=== PATIENT | male | born 1970 | race African-American/Black ===

== ENCOUNTER 2019-07-15 08:20 | Observation (INO) | payer OTHER ==
--- NOTE | 2019-07-15 09:15 | EKG REPORT ---
SEVERITY:- OTHERWISE NORMAL ECG - SINUS RHYTHM BORDERLINE LEFT AXIS DEVIATION : Confirmed by: Jaleel Lange 15-Jul-2019 09:15:10
--- NOTE | 2019-07-15 09:39 | ER Document Report ---
ED General - General Chief Complaint: Chest Pain Stated Complaint: CHEST PAIN Time Seen by Provider: 07/15/19 09:37 Mode of Arrival: Ambulatory Information source: Patient Notes: 48-year-old male with history of high cholesterol not taking meds presents to the emergency department with complaints of mid chest pain that started this morning when he was getting dressed for work. Reports it feels like a strain in the middle of his chest. Also reports he had some left-sided chest pain that s tarted a couple of weeks ago that comes and goes. He reports the left side of the chest feels like a pulled muscle. He reports it hurts when he takes a deep breath or moves. He also feels short of breath. Denies fever nausea vomiting diarrhea. Denies trauma. Reports he was lifting weights before but nothing recently. He reports he has been eating drinking voiding bowel movement as normal. Last bowel movement was yesterday. Denies history of cardiac disease. TRAVEL OUTSIDE OF THE [place] IN LAST 30 DAYS: No - HPI Onset: This morning Onset/Duration: Sudden Quality of pain: Other - Strain Associated symptoms: Shortness of breath Exacerbated by: Deep breathing Relieved by: Denies Similar symptoms previously: No Recently seen / treated by doctor: No - Related Data Allergies/Adverse Reactions: No Known Allergies Allergy (Verified 07/15/19 08:41) Past Medical History - General Information source: Patient - Social History Smoking Status: Unknown if Ever Smoked Chew tobacco use (# tins/day): No Frequency of alcohol use: None Drug Abuse: None Occupation: [employer] Lives with: Family Family History: CAD - mother Patient has suicidal ideation: No Patient has homicidal ideation: No - Past Medical History Cardiac Medical History: Reports: Hx Hypercholesterolemia Musculoskeletal Medical History: Reports Hx Arthritis Surgical Hx: Negative Review of Systems - Review of Systems Notes: Review HPI for review of systems., All other systems negative Physical Exam - Vital signs Vitals: Temp Pulse Resp BP Pulse Ox 97.9 F 69 20 128/80 H 97 07/15/19 08:31 07/15/19 08:31 07/15/19 08:31 07/15/19 08:31 07/15/19 08:31 - General General appearance: Appears well, Alert In distress: None - HEENT Head: Normocephalic, Atraumatic Eyes: Normal Conjunctiva: Normal Extraocular movements intact: Yes Eyelashes: Normal Pupils: PERRL Ears: Normal External canal: Normal Tympanic membrane: Normal Mucous membranes: Normal, Moist Pharynx: Normal. No: Erythema Neck: Normal, Supple. No: Lymphadenopathy - Respiratory Respiratory status: No respiratory distress Chest status: Tender - Chest wall tender to palpate, Pain with deep breathing Breath sounds: Normal Chest palpation: Normal - Cardiovascular Rhythm: Regular Heart sounds: Normal auscultation, S1 appreciated, S2 appreciated Murmur: No - Abdominal Inspection: Normal Distension: No distension Bowel sounds: Normal Tenderness: Nontender Organomegaly: No organomegaly - Back Back: Normal, Nontender - Extremities General upper extremity: Normal ROM General lower extremity: Normal ROM - Neurological Neuro grossly intact: Yes Cognition: Normal Orientation: AAOx4 Norris Coma Scale Eye Opening: Spontaneous Virgen Coma Scale Verbal: Oriented Norris Coma Scale Motor: Obeys Commands Virgen Coma Scale Total: 15 Speech: Normal - Psychological Associated symptoms: Normal affect, Normal mood - Skin Skin Temperature: Warm Skin Moisture: Dry Skin Color: Normal Course - Re-evaluation Re-evalutation: 07/15/19 11:50 48-year-old male presents emergency department with complaints of chest pain midsternal that hurts more when he takes a deep breath. Also complains of pain with movement and with palpation. Denies history of cardiac disease. Denies n ausea diaphoresis. Reports he does feel little short of breath when he takes a deep breath. Also reports he has had some pain to the left side of his chest started couple weeks ago. 07/15/19 12:39 Patient received 1 nitro sublingual. Reports no relief. Dr. Fermin consulted and evaluated patient, advises d-dimer to rule out PE, if that is negative patient should be admitted for observation. Presentation of chest pain in an otherwise well-appearing patient. EKG without ST elevation or depressions, and negative initial troponin. Heart score equal to 3. Chest x-ray without evidence of pneumothorax or pneumonia. No widened mediastinum. Inferior dissection also seems unlikely given history, symmetric pulses, chest x-ray and vitals. Patient has history of high cholesterol, obesity at 119 kg at 5 feet 6, has family history of cardiac disease with his mom recently having triple bypass. HEART score-3 History-1 ECG-0 Age -1 Risk Factors-2 neg Troponin 07/15/19 17:00 Patient resting quietly. D-dimer negative. Consulted hospitalist for admission. Nicole PEREZ contacted will be down to assess patient. Patient assessed by Nicole PEREZ. Patient agrees to be discharged home with follow-up with Dr. Lange tomorrow in the office. Has an appointment 1130. Chest X-Ray 07/15/19 00:00 IMPRESSION: NO ACUTE RADIOGRAPHIC FINDING IN THE CHEST. Laboratory 07/15/19 07/15/19 07/15/19 09:24 09:24 09:24 WBC 3.8 L RBC 4.51 Hgb 13.7 Hct 40.9 MCV 91 MCH 30.3 MCHC 33.4 RDW 14.4 H Plt Count 193 Lymph % (Auto) 46.6 H [place] % (Auto) 7.3 Eos % (Auto) 1.2 Baso % (Auto) 1.1 Absolute Neuts (auto) 1.7 Absolute Lymphs (auto) 1.8 Absolute Monos (auto) 0.3 Absolute Eos (auto) 0.0 Absolute Basos (auto) 0.0 Seg Neutrophils % 43.8 PT 12.7 INR 0.96 Sodium 139.5 Potassium 4.7 Chloride 102 Carbon Dioxide 29 Anion Gap 9 BUN 18 Creatinine 1.06 Est GFR ( Amer) > 60 Est GFR (MDRD) Non-Af > 60 Glucose 94 Calcium 9.9 Total Bilirubin 0.6 Direct Bilirubin 0.0 Neonat Total Bilirubin Not Reportable Neonat Direct Bilirubin Not Reportable Neonat Indirect Bili Not Reportable AST 31 ALT 30 Alkaline Phosphatase 47 Creatine Kinase 313 H Troponin I Total Protein 7.7 Albumin 4.8 Urine Color Urine Appearance Urine pH Ur Specific [place] Urine Protein Urine Glucose (UA) Urine Ketones Urine Blood Urine Nitrite Urine Bilirubin Urine Urobilinogen Ur Leukocyte Esterase Urine WBC (Auto) Squamous Epi Cells Auto Urine Mucus (Auto) Urine Ascorbic Acid 07/15/19 07/15/19 09:24 10:21 WBC RBC Hgb Hct MCV MCH MCHC RDW Plt Count Lymph % (Auto) [place] % (Auto) Eos % (Auto) Baso % (Auto) Absolute Neuts (auto) Absolute Lymphs (auto) Absolute Monos (auto) Absolute Eos (auto) Absolute Basos (auto) Seg Neutrophils % PT INR Sodium Potassium Chloride Carbon Dioxide Anion Gap BUN Creatinine Est GFR ( Amer) Est GFR (MDRD) Non-Af Glucose Calcium Total Bilirubin Direct Bilirubin Neonat Total Bilirubin Neonat Direct Bilirubin Neonat Indirect Bili AST ALT Alkaline Phosphatase Creatine Kinase Troponin I < 0.012 Total Protein Albumin Urine Color YELLOW Urine Appearance CLEAR Urine pH 5.0 Ur Specific [place] 1.018 Urine Protein NEGATIVE Urine Glucose (UA) NEGATIVE Urine Ketones NEGATIVE Urine Blood NEGATIVE Urine Nitrite NEGATIVE Urine Bilirubin NEGATIVE Urine Urobilinogen NEGATIVE Ur Leukocyte Esterase NEGATIVE Urine WBC (Auto) 0 Squamous Epi Cells Auto <1 Urine Mucus (Auto) RARE Urine Ascorbic Acid 40 H 07/15/19 18:13 07/15/19 18:14 - Vital Signs Vital signs: Temp Pulse Resp BP Pulse Ox 97.9 F 84 18 131/88 H 96 07/15/19 08:31 07/15/19 17:40 07/15/19 17:40 07/15/19 17:40 07/15/19 17:40 - Laboratory Result Diagrams: 07/15/19 09:24 07/15/19 09:24 Laboratory results interpreted by me: 07/15/19 07/15/19 07/15/19 09:24 09:24 10:21 WBC 3.8 L RDW 14.4 H Lymph % (Auto) 46.6 H Creatine Kinase 313 H Urine Ascorbic Acid 40 H - Diagnostic Test Radiology reviewed: Reports reviewed - EKG Interpretation by Hi EKG shows normal: Sinus rhythm Rate: Normal Rhythm: NSR Additional EKG results interpreted by ky: 07/15/19 12:[address] elevation no T wave inversion - Consults nicole cade Time consulted: 17:00 Reason for consultation: 07/15/19 18:13 cp Consulted provider: will come to ER Discharge - Discharge Clinical Impression: Chest pain Qualifiers: Chest pain type: unspecified Qualified Code(s): R07.9 - Chest pain, unspecified Condition: Stable Disposition: ADMITTED OBSERVATION Admitting Provider: Drake (Hospitalist) Unit Admitted: Telemetry
[2019-07-15 09:50] LABS: ABSOLUTE LYMPHOCYTES (AUTO) 1.8 10^3/uL (0.5-4.7); ABSOLUTE MONOCYTES (AUTO) 0.3 10^3/uL (0.1-1.4); ABSOLUTE NEUT (AUTO) 1.7 10^3/uL (1.7-8.2); BASOPHILS % (AUTO) 1.1 % (0-2); EOSINOPHILS % (AUTO) 1.2 % (0-6); HEMATOCRIT 40.9 % (37.9-51.0); HEMOGLOBIN 13.7 g/dL (13.5-17.0); LYMPHOCYTES % (AUTO) 46.6 % (13-45); MEAN CORPUSCULAR HEMOGLOBIN 30.3 pg (27.0-33.4); MEAN CORPUSCULAR HGB CONC 33.4 g/dL (32.0-36.0); MEAN CORPUSCULAR VOLUME 91 fl (80-97); MONOCYTES % (AUTO) 7.3 % (3-13); PLATELET COUNT 193 10^3/uL (150-450); RED BLOOD COUNT 4.51 10^6/uL (4.35-5.55); RED CELL DISTRIBUTION WIDTH 14.4 % (11.5-14.0); SEGMENTED NEUTROPHILS % (AUTO) 43.8 % (42-78); TOTAL CELLS COUNTED % (AUTO) 100 %; WHITE BLOOD COUNT 3.8 10^3/uL (4.0-10.5)
[2019-07-15 10:01] LABS: INTERNATIONAL RATION (INR) 0.96; PROTHROMBIN TIME 12.7 SEC (11.4-15.4)
[2019-07-15 10:21] LABS: ALBUMIN 4.8 g/dL (3.5-5.0); ALKALINE PHOSPHATASE 47 U/L (38-126); ANION GAP 9 (5-19); ASPARTATE AMINO TRANSFERASE 31 U/L (17-59); BILIRUBIN,TOTAL 0.6 mg/dL (0.2-1.3); BLOOD UREA NITROGEN 18 mg/dL (7-20); CALCIUM 9.9 mg/dL (8.4-10.2); CARBON DIOXIDE 29 mmol/L (22-30); CHLORIDE 102 mmol/L (98-107); CREATINE KINASE 313 U/L (55-170); GLUCOSE 94 mg/dL (75-110); POTASSIUM 4.7 mmol/L (3.6-5.0); TOTAL PROTEIN 7.7 g/dL (6.3-8.2)
[2019-07-15 10:32] LABS: APPEARANCE,URINE CLEAR; BILIRUBIN,URINE NEGATIVE (NEGATIVE); COLOR,URINE YELLOW; GLUCOSE, URINE NEGATIVE (NEGATIVE); KETONES,URINE NEGATIVE (NEGATIVE); LEUKOCYTE ESTERASE,URINE NEGATIVE (NEGATIVE); NITRITE,URINE NEGATIVE (NEGATIVE); PROTEIN,URINE NEGATIVE (NEGATIVE); URINE SPECIFIC GRAVITY 1.018; UROBILINOGEN,URINE NEGATIVE mg/dL (<2.0)
--- NOTE | 2019-07-15 10:35 | RADIOLOGY REPORT (SQ) ---
EXAM DESCRIPTION: CHEST 2 VIEWS COMPLETED DATE/TIME: 07/15/2019 10:07 am REASON FOR STUDY: chest pain COMPARISON: None. EXAM PARAMETERS: NUMBER OF VIEWS: two views TECHNIQUE: Digital Frontal and Lateral radiographic views of the chest acquired. RADIATION DOSE: NA LIMITATIONS: none FINDINGS: LUNGS AND PLEURA: No opacities, masses or pneumothorax. No pleural effusion. MEDIASTINUM AND HILAR STRUCTURES: No masses or contour abnormalities. HEART AND VASCULAR STRUCTURES: Heart normal size. No evidence for failure. BONES: No acute findings. HARDWARE: None in the chest. OTHER: No other significant finding. IMPRESSION: NO ACUTE RADIOGRAPHIC FINDING IN THE CHEST. TECHNICAL DOCUMENTATION: JOB ID: [id number] [employer]- All Rights Reserved Reading location - IP/workstation name: [email or web address]
[2019-07-15] MEDS ORDERED: ASPIRIN 81 MG TABLET, CHEWABLE PO ONE (11:34)
[2019-07-15] MEDS ORDERED: IBUPROFEN 800 MG TABLET PO ONE (11:35)
[2019-07-15] MEDS ORDERED: NITROGLYCERIN 0.4 MG/TAB 25 TAB/BOTTLE SL ONE (13:20)
[2019-07-15] MEDS ORDERED: NITROGLYCERIN 0.4 MG/TAB 25 TAB/BOTTLE SL PRN (16:03)
[2019-07-15] MEDS ORDERED: MAGNESIUM HYDROXIDE SUSP 30 ML UDCUP PO PRN (16:06)
[2019-07-15] MEDS ORDERED: MAG HYDROX/AL HYDROX/SIMETH SUSP 30 ML UDCUP PO PRN (16:06)
[2019-07-15] MEDS ORDERED: ACETAMINOPHEN 325 MG TABLET PO PRN (16:06)
[2019-07-15] MEDS ORDERED: ONDANSETRON HCL INJ/PF 4 MG/2 ML SDV IV PRN (16:06)
[2019-07-15 17:41] VITALS: BP 131/88
--- NOTE | 2019-07-15 19:24 | PDOC CONSULTATION ---
Consultation Consult Date: 07/15/19 Provider Consulted: EMPERATRIZ SOLANO History of Present Illness Admission Date/PCP: 07/15/19 15:58 LEAH ESCALONA MD Patient complains of: Chest pain History of Present Illness: GARRET LIZARRAGA JR is a 48 year old male with a past medical history significant for hyperlipidemia and obesity who presented to the emergency department with atypical chest pain. He reports that his pain was noted upon waking, does radiate to his shoulder, is significantly worsened with movement and inspiration, relieved by rest. There are no associated symptoms; denies dyspnea, nausea, diaphoresis. Evaluation in the emergency department revealed stable vital signs, unremarkable CBC, coags, d-dimer, chemistries, and troponin x2. CK minimally elevated at 313. Urinalysis is negative. EKG shows NSR without acute findings. The patient was referred to the hospitalist service for further evaluation. I did discuss the patient's case with the on-call dumper bulk system, Dr. Lange. As the patient has a low heart score, atypical chest pain report (likely musculoskeletal) with reassuring EKG and 2- troponins, he does meet criteria for discharge to home with outpatient cardiology follow-up. He has been provided a follow-up appointment at Dr. Lange's office for tomorrow morning at 1130. This was discussed as a potential plan with the patient and family; both felt comfortable with plan to move forward with discharge. Past Medical History Cardiac Medical History: Reports: Hyperlipidema Denies: Congestive Heart Failure, Coronary Artery Disease, Myocardial Infarction, Hypertension Pulmonary Medical History: Reports: None EENT Medical History: Reports: None, Eyes Neurological Medical History: Reports: None Endocrine Medical History: Reports: Obesity Denies: Diabetes Mellitus Type 2, Hypothyroidism Renal/ Medical History: Reports: None Malignancy Medical History: Reports: None GI Medical History: Reports: None Musculoskeltal Medical History: Reports: Arthritis Skin Medical History: Reports: None Psychiatric Medical History: Reports: None Traumatic Medical History: Reports: None Hematology: Reports: None Infectious Medical History: Reports: None Past Surgical History Past Surgical History: Reports: None Social History Information Source: Patient Lives with: Family Smoking Status: Unknown if Ever Smoked Electronic Cigarette use?: No Frequency of Alcohol Use: None Hx Recreational Drug Use: No Drugs: None Hx Prescription Drug Abuse: No - Advance Directive Resuscitation Status: Full Code Surrogate healthcare decision maker:: The patient's . Family History Family History: CAD - mother in her 70s Parental Family History Reviewed: Yes Children Family History Reviewed: Yes Sibling(s) Family History Reviewed.: Yes Medication/Allergy Home Medications: Acetaminophen [Tylenol 325 mg Tablet] 650 mg PO Q4HP PRN tablet 07/15/19 Aspirin [Ecotrin 81 mg EC Tablet] 81 mg PO DAILY #60 tabec 07/15/19 Atorvastatin Calcium [Lipitor 20 mg Tablet] 20 mg PO QHS #30 tablet 07/15/19 Cyclobenzaprine HCl [Flexeril 10 mg Tablet] 10 mg PO TIDP PRN #15 tab 07/15/19 Multivitamin [Multivitamins] 1 each PO DAILY 07/15/19 Tramadol HCl [Ultram 50 mg Tablet] 50 mg PO Q6HP PRN #20 tablet 07/15/19 Allergies/Adverse Reactions: No Known Allergies Allergy (Verified 07/15/19 08:41) Review of Systems Constitutional: ABSENT: chills, fever(s), headache(s), weight gain, weight loss Eyes: ABSENT: visual disturbances Ears: ABSENT: hearing changes Cardiovascular: PRESENT: as per HPI. ABSENT: dyspnea on exertion, edema, orthropnea, palpitations Respiratory: ABSENT: cough, hemoptysis Gastrointestinal: ABSENT: abdominal pain, constipation, diarrhea, hematemesis, hematochezia, nausea, vomiting Genitourinary: ABSENT: dysuria, hematuria Musculoskeletal: ABSENT: joint swelling Integumentary: ABSENT: rash, wounds Neurological: ABSENT: abnormal gait, abnormal speech, confusion, dizziness, focal weakness, syncope Psychiatric: ABSENT: anxiety, depression, homidical ideation, suicidal ideation Endocrine: ABSENT: cold intolerance, heat intolerance, polydipsia, polyuria Hematologic/Lymphatic: ABSENT: easy bleeding, easy bruising Physical Exam Vital Signs: Temp Pulse Resp BP Pulse Ox 97.9 F 69 20 128/80 H 97 07/15/19 08:31 07/15/19 08:31 07/15/19 08:31 07/15/19 08:31 07/15/19 08:31 Intake & Output 07/14/19 07/15/19 07/16/19 06:59 06:59 06:59 Weight 119 kg General appearance: PRESENT: no acute distress, cooperative, obese, well- developed, well-nourished Head exam: PRESENT: atraumatic, normocephalic Eye exam: PRESENT: conjunctiva pink, EOMI, PERRLA. ABSENT: scleral icterus Ear exam: PRESENT: normal external ear exam Mouth exam: PRESENT: moist, tongue midline Neck exam: ABSENT: carotid bruit, JVD, lymphadenopathy, thyromegaly Respiratory exam: PRESENT: clear to auscultation siva, symmetrical, unlabored. ABSENT: rales, rhonchi, wheezes Cardiovascular exam: PRESENT: RRR, +S1, +S2. ABSENT: diastolic murmur, rubs, systolic murmur Pulses: PRESENT: normal dorsalis pedis pul Vascular exam: PRESENT: normal capillary refill GI/Abdominal exam: PRESENT: normal bowel sounds, soft. ABSENT: distended, guarding, mass, organolmegaly, rebound, tenderness Rectal exam: PRESENT: deferred Extremities exam: PRESENT: full ROM. ABSENT: calf tenderness, clubbing, pedal edema Musculoskeletal exam: PRESENT: ambulatory Neurological exam: PRESENT: alert, awake, oriented to person, oriented to place, oriented to time, oriented to situation, CN II-XII grossly intact. ABSENT: motor sensory deficit Psychiatric exam: PRESENT: appropriate affect, normal mood. ABSENT: homicidal ideation, suicidal ideation Skin exam: PRESENT: dry, intact, warm. ABSENT: cyanosis, rash Results Laboratory Results: 07/15/19 09:24 07/15/19 09:24 07/15/19 07/15/19 07/15/19 09:24 09:24 10:21 WBC 3.8 L RBC 4.51 Hgb 13.7 Hct 40.9 MCV 91 MCH 30.3 MCHC 33.4 RDW 14.4 H Plt Count 193 Seg Neutrophils % 43.8 Sodium 139.5 Potassium 4.7 Chloride 102 Carbon Dioxide 29 Anion Gap 9 BUN 18 Creatinine 1.06 Est GFR ( Amer) > 60 Glucose 94 Calcium 9.9 Total Bilirubin 0.6 AST 31 Alkaline Phosphatase 47 Total Protein 7.7 Albumin 4.8 Urine Color YELLOW Urine Appearance CLEAR Urine pH 5.0 Ur Specific [place] 1.018 Urine Protein NEGATIVE Urine Glucose (UA) NEGATIVE Urine Ketones NEGATIVE Urine Blood NEGATIVE Urine Nitrite NEGATIVE Ur Leukocyte Esterase NEGATIVE Urine WBC (Auto) 0 07/15/19 07/15/19 07/15/19 09:24 09:24 12:13 Creatine Kinase 313 H Troponin I < 0.012 < 0.012 Impressions: Chest X-Ray 07/15/19 00:00 IMPRESSION: NO ACUTE RADIOGRAPHIC FINDING IN THE CHEST. Assessment and Plan - Diagnosis (1) Chest pain Qualifiers: Chest pain type: unspecified Qualified Code(s): R07.9 - Chest pain, unspecified Is this a current diagnosis for this admission?: Yes Plan: Atypical chest pain noted upon waking, does radiate to his shoulder, is significantly worsened with movement and inspiration, relieved by rest. There are no associated symptoms; denies dyspnea, nausea, diaphoresis. Unremarkable coags and d-dimer, Negative troponin x2. CK minimally elevated at 313. EKG shows NSR without acute findings. CXR is nml Discussed with on-call dumper bulk system; patient meets criteria for discharge to home with close outpatient follow-up. He is provided a follow-up appointment with Dr. Lange's office tomorrow at 11:30 in the morning. He is provided prescriptions for daily aspirin and statin therapy. He is advised that he can hold these prescriptions until he sees Dr. Lange's office tomorrow before filling the prescriptions as Dr. Lange may make alternate recommendations. He is also instructed to return to the emergency department as needed for any worsening or new concerning symptoms (2) Musculoskeletal chest pain Is this a current diagnosis for this admission?: Yes Plan: Chest discomfort as described above. Patient is provided a short prescription for Flexeril and tramadol (3) Morbid obesity Is this a current diagnosis for this admission?: Yes Plan: Dietary discretion and lifestyle modification are advised. - Plan Summary Summary: Patient is discharged to home from the emergency department. - Time Time Spent with patient: 35 or more minutes Anticipated discharge: Home
[2019-07-15] MEDS ORDERED: FAMOTIDINE 20 MG TABLET PO SCH (22:00)
[2019-07-15] MEDS ORDERED: ATORVASTATIN CALCIUM 20 MG TABLET PO SCH (22:00)
[2019-07-16] MEDS ORDERED: ASPIRIN 81 MG TABLET, ENT COATED PO SCH (10:00)
== END 2019-07-15 17:40 | disposition home or self-care (01) ==
LOC: ER 08:20 → EH 15:58
PROVIDERS: ADMIT Internal Medicine; ATTEND Internal Medicine
DX: R07.89 Other chest pain (principal); E78.5 Hyperlipidemia, unspecified; E66.9 Obesity, unspecified; E66.01 Morbid (severe) obesity due to excess calories; R06.02 Shortness of breath; Z82.49 Family history of ischemic heart disease and other diseases of the circulatory system; Z79.82 Long term (current) use of aspirin
CPT/HCPCS: 36415; 71046; 80053; 81001; 82550; 84484; 85025; 85379; 85610; 93005; 93010; 99285

== ENCOUNTER 2019-11-15 09:38 | Emergency (ER) | payer OTHER ==
--- NOTE | 2019-11-15 10:09 | ER Document Report ---
ED Medical Screen (RME) - General Chief Complaint: Flank Pain Stated Complaint: FLANK PAIN Time Seen by Provider: 11/15/19 10:07 Primary Care Provider: LEAH ESCALONA MD [Primary Care Provider] - Follow up as needed Mode of Arrival: Ambulatory Information source: Patient Notes: 49-year-old male patient presenting to the emergency department chief complaint of right lower quadrant abdominal pain/right flank pain. Patient reports associated nausea without vomiting. He states symptoms started abruptly at 745 this morning. Denies any urinary symptoms. Patient denies history of kidney stones. Patient appears to be moderately uncomfortable in triage. Mild tenderness to the right flank and right lower quadrant abdomen. I have greeted and performed a rapid initial assessment of this patient. A comprehensive ED assessment and evaluation of the patient, analysis of test results and completion of the medical decision making process will be conducted by additional ED providers. I have specifically instructed the patient or family members with the patient to immediately return to any nursing staff should anything change in the patient's condition or with their chief complaint. TRAVEL OUTSIDE OF THE [place] IN LAST 30 DAYS: No - Related Data Allergies/Adverse Reactions: No Known Allergies Allergy (Verified 07/15/19 08:41) Past Medical History - Past Medical History Cardiac Medical History: Reports: Hx Hypercholesterolemia Denies: Hx Congestive Heart Failure, Hx Coronary Artery Disease, Hx Heart Attack, Hx Hypertension Endocrine Medical History: Denies: Hx Diabetes Mellitus Type 2, Hx Hypothyroidism Musculoskeltal Medical History: Reports Hx Arthritis Physical Exam - Vital signs Vitals: Temp Pulse Resp BP Pulse Ox 97.9 F 75 18 167/83 H 97 11/15/19 09:47 11/15/19 09:47 11/15/19 09:47 11/15/19 09:47 11/15/19 09:47 Course - Vital Signs Vital signs: Temp Pulse Resp BP Pulse Ox 97.9 F 75 18 167/83 H 97 11/15/19 10:01 11/15/19 09:47 11/15/19 09:47 11/15/19 09:47 11/15/19 09:47 Doctor's Discharge - Discharge Referrals: LEAH ESCALONA MD [Primary Care Provider] - Follow up as needed
[2019-11-15] MEDS ORDERED: ONDANSETRON HCL INJ/PF 4 MG/2 ML SDV IV ONE (10:13)
[2019-11-15] MEDS ORDERED: KETOROLAC TROMETHAMINE INJ/PF 30 MG/1 ML SDV IV ONE (10:13)
[2019-11-15] MEDS ORDERED: MORPHINE SULFATE 10 MG/ML INJ IV ONE (10:15)
[2019-11-15 10:34] LABS: APPEARANCE,URINE SLIGHTLY-CLOUDY; BILIRUBIN,URINE NEGATIVE (NEGATIVE); COLOR,URINE YELLOW; GLUCOSE, URINE NEGATIVE (NEGATIVE); KETONES,URINE NEGATIVE (NEGATIVE); LEUKOCYTE ESTERASE,URINE NEGATIVE (NEGATIVE); NITRITE,URINE NEGATIVE (NEGATIVE); PROTEIN,URINE 30 mg/dL (NEGATIVE); URINE SPECIFIC GRAVITY 1.023; UROBILINOGEN,URINE NEGATIVE mg/dL (<2.0)
[2019-11-15 10:36] LABS: ABSOLUTE LYMPHOCYTES (AUTO) 1.9 10^3/uL (0.5-4.7); ABSOLUTE MONOCYTES (AUTO) 0.3 10^3/uL (0.1-1.4); ABSOLUTE NEUT (AUTO) 2.3 10^3/uL (1.7-8.2); BASOPHILS % (AUTO) 0.8 % (0-2); EOSINOPHILS % (AUTO) 0.8 % (0-6); HEMATOCRIT 42.1 % (37.9-51.0); HEMOGLOBIN 13.9 g/dL (13.5-17.0); LYMPHOCYTES % (AUTO) 40.9 % (13-45); MEAN CORPUSCULAR HEMOGLOBIN 30.4 pg (27.0-33.4); MEAN CORPUSCULAR HGB CONC 33.2 g/dL (32.0-36.0); MEAN CORPUSCULAR VOLUME 92 fl (80-97); PLATELET COUNT 213 10^3/uL (150-450); RED BLOOD COUNT 4.59 10^6/uL (4.35-5.55); RED CELL DISTRIBUTION WIDTH 14.8 % (11.5-14.0); SEGMENTED NEUTROPHILS % (AUTO) 51.5 % (42-78); TOTAL CELLS COUNTED % (AUTO) 100 %; WHITE BLOOD COUNT 4.5 10^3/uL (4.0-10.5)
[2019-11-15 10:51] LABS: ALBUMIN 5.2 g/dL (3.5-5.0); ALKALINE PHOSPHATASE 54 U/L (38-126); ANION GAP 12 (5-19); ASPARTATE AMINO TRANSFERASE 48 U/L (17-59); BILIRUBIN,TOTAL 0.7 mg/dL (0.2-1.3); BLOOD UREA NITROGEN 16 mg/dL (7-20); CALCIUM 9.7 mg/dL (8.4-10.2); CARBON DIOXIDE 27 mmol/L (22-30); CHLORIDE 102 mmol/L (98-107); GLUCOSE 150 mg/dL (75-110); TOTAL PROTEIN 8.1 g/dL (6.3-8.2)
--- NOTE | 2019-11-15 11:14 | RADIOLOGY REPORT (SQ) ---
EXAM DESCRIPTION: CT ABD/PELVIS NO ORAL OR IV IMAGES COMPLETED DATE/TIME: 11/15/2019 10:54 am REASON FOR STUDY: R flank pain sudden onset COMPARISON: None. TECHNIQUE: CT scan of the abdomen and pelvis performed without intravenous or oral contrast. Images reviewed with lung, soft tissue, and bone windows. Reconstructed coronal and sagittal MPR images revi ewed. All images stored on PACS. All CT scanners at this facility use dose modulation, iterative reconstruction, and/or weight based d osing when appropriate to reduce radiation dose to as low as reasonably achievable (ALARA). [facility]: Dose Right [facility]: CareDose [facility]: Dose Right [facility]: Teradose 4D [facility]: Smart Sapheneia RADIATION DOSE: CT Rad equipment meets quality standard of care and radiation dose reduction techniq ues were employed. CTDIvol: 18.2 mGy. DLP: 1069 mGy-cm. LIMITATIONS: None. FINDINGS: LOWER CHEST: No acute findings. NON-CONTRASTED LIVER, SPLEEN, ADRENALS: Evaluation is limited due to the absence of intravenous contr ast. There is no evidence of hepatic steatosis. The spleen is normal in size. There is an accessor y splenule posterior to the pancreatic tail. There is no adrenal mass. PANCREAS: No acute gross abnormality of the pancreas. GALLBLADDER: No abnormality that is apparent on CT. RIGHT KIDNEY AND URETER: Evaluation is limited due to the absence of intravenous contrast. There is mild pelvicaliectasis without hydroureter, nephrolithiasis or ureterolithiasis. LEFT KIDNEY AND URETER: Evaluation is limited due to the absence of intravenous contrast. There is n o hydronephrosis, nephrolithiasis, hydroureter or ureterolithiasis. AORTA AND RETROPERITONEUM: No aneurysm of the abdominal aorta. No retroperitoneal appy, hemorrhage o r mass. BOWEL AND PERITONEAL CAVITY: No bowel obstruction, bowel wall thickening or pericolonic/ perienteric inflammation. No mesenteric adenopathy, free intraperitoneal fluid or mesenteric/ omental inflammati on. APPENDIX: Normal. PELVIS, BLADDER, AND ABDOMINAL WALL:Fat containing infraumbilical hernia. The urinary bladder is con tracted. The prostate gland measures 5.1 cm in transverse diameter. BONES: No acute findings. OTHER: No other finding. IMPRESSION: 1. Mild right-sided pelvicaliectasis without hydroureter, nephrolithiasis or ureterolith iasis. 2. Other nonemergent findings as detailed above. COMMENT: Quality ID # [id number]: Final reports with documentation of one or more dose reduction techniques (e.g., Automated exposure control, adjustment of the mA and/or kV according to patient size, use of iterative reconstruction technique) TECHNICAL DOCUMENTATION: JOB ID: [id number] 2010 [employer]- All Rights Reserved Reading location - IP/workstation name: [email or web address]
[2019-11-15] MEDS ORDERED: OXYCODONE-ACETAMINOPHEN 5-325 MG TABLET PO ONE (11:19)
--- NOTE | 2019-11-15 11:19 | ER Document Report ---
ED General - General Chief Complaint: Flank Pain Stated Complaint: FLANK PAIN Time Seen by Provider: 11/15/19 10:07 Primary Care Provider: LEAH ESCALONA MD [Primary Care Provider] - Follow up as needed Mode of Arrival: Ambulatory Notes: Patient presents with right flank pain radiating to his right groin onset this morning with nausea dry heaves no vomiting no diarrhea no fever. Urine was normal until he got here when he had an episode of urethral pain and red urine. His pain is since improved. He has been seen by triage provider urine shows hematuria labs are essentially normal and CT shows signs of recently passed stone. TRAVEL OUTSIDE OF THE [place] IN LAST 30 DAYS: No - Related Data Allergies/Adverse Reactions: No Known Allergies Allergy (Verified 07/15/19 08:41) Past Medical History - General Information source: Patient - Social History Smoking Status: Never Smoker Family History: None, CAD - mother in her 70s Patient has homicidal ideation: No - Past Medical History Cardiac Medical History: Reports: Hx Hypercholesterolemia Denies: Hx Congestive Heart Failure, Hx Coronary Artery Disease, Hx Heart Attack, Hx Hypertension Endocrine Medical History: Denies: Hx Diabetes Mellitus Type 2, Hx Hypothyroidism Musculoskeletal Medical History: Reports Hx Arthritis Review of Systems - Review of Systems Notes: REVIEW OF SYSTEMS GEN: Denies fever, chills, weight loss ENT: Denies sore throat, nasal discharge, ear pain EYES: Denies blurry vision, eye pain, discharge CV: Denies chest pain, palpitations, edema RESP: Denies cough, shortness of breath, wheezing GI: D nominal and flank pain MSK: Denies joint pain/swelling, edema, SKIN: Denies rash, skin lesions LYMPH: Denies swollen glands/lymph nodes NEURO: Denies headache, focal weakness or numbness, dizziness PSYCH: Denies depression, suicidal or homicidal ideation PHYSICAL EXAMINATION General: No acute distress, well-nourished Head: Atraumatic, normocephalic ENT: Mouth normal, oropharynx moist, no exudates or tonsillar enlargement Eyes: Conjunctiva normal, pupils equal, lids normal Neck: No JVD, supple, no guarding CVS: Normal rate, regular rhythm, no murmurs Resp: No resp distress, equal and normal breath sounds bilaterally GI: Nondistended, soft, no tenderness to palpation, no rebound or guarding Ext: No deformities, no edema, normal range of motion in upper and lower ext Back: No CVA or midline TTP Skin: No rash, warm Lymphatic: No lymphadeopathy noted Neuro: Awake, alert. Face symmetric. GCS 15. Physical Exam - Vital signs Vitals: Temp Pulse Resp BP Pulse Ox 97.9 F 75 18 167/83 H 97 11/15/19 09:47 11/15/19 09:47 11/15/19 09:47 11/15/19 09:47 11/15/19 09:47 Course - Re-evaluation Re-evalutation: 11/15/19 11:47 Patient presents with what sounds like renal colic. He has no scrotal pain, and his pain is much improved after an episode of hematuria in the ED His CT shows stigmata of a stone but there is no stone seen. I suspect that he passed the stone after he got here. He has been ordered to receive medicine by the triage provider which I will allow to be given then will discharge home with Motrin good hydration instructions and follow-up with primary care. No signs of infection or sepsis I have discussed with the patient there likely diagnosis, aftercare plan, follow-up plans and my usual and customary return precautions. They verbalized understanding of this. - Vital Signs Vital signs: Temp Pulse Resp BP Pulse Ox 97.9 F 75 18 167/83 H 97 11/15/19 10:01 11/15/19 09:47 11/15/19 09:47 11/15/19 09:47 11/15/19 09:47 - Laboratory Result Diagrams: 11/15/19 10:16 11/15/19 10:16 Laboratory results interpreted by me: 11/15/19 11/15/19 11/15/19 10:16 10:16 10:16 RDW 14.8 H Creatinine 1.40 H Est GFR (MDRD) Non-Af 54 L Glucose 150 H Albumin 5.2 H Urine Protein 30 H Urine Blood LARGE H Urine Ascorbic Acid 40 H Discharge - Discharge Clinical Impression: Renal colic Condition: Good Disposition: HOME, SELF-CARE Instructions: Kidney Stone ([facility]) Prescriptions: Ibuprofen [Motrin 400 mg Tablet] 400 mg PO MEALS #90 tablet Metoclopramide HCl [Reglan] 10 mg PO Q8 #7 tablet Referrals: LEAH ESCALONA MD [Primary Care Provider] - Follow up as needed
[2019-11-15 12:10] VITALS: BP 125/82
== END 2019-11-15 12:11 | disposition home or self-care (01) ==
LOC: ER 09:38
DX: N23 Unspecified renal colic (principal); E78.00 Pure hypercholesterolemia, unspecified
CPT/HCPCS: 99284; 96374; 96375; 36415; 83690; 85025; 80053; 81001; 74176; J1885; J2270; J2405